=== PATIENT | male | born 1960 | race Caucasian/White ===

== ENCOUNTER 2023-12-13 15:55 | Emergency (ER) | payer OTHER ==
[~2023-12-13] VITALS: Ht 180.3 cm; Wt 117.9 kg
[2023-12-13] MEDS ORDERED: LOSARTAN POTAS100 M1 PO (16:12)
[2023-12-13] MEDS ORDERED: SILDENAFIL CIT100 MG PO (16:12)
[2023-12-13] MEDS ORDERED: AMLODIPINE BESY10 MG PO (16:12)
[2023-12-13] MEDS ORDERED: MYRBETRIQ25 M1 PO (16:12)
[2023-12-13] MEDS ORDERED: HYDROCHLOROTHIA50 M1 PO (16:12)
[2023-12-13] MEDS ORDERED: IBUPROFEN 800 MG TAB PO ONE (16:30)
== END 2023-12-13 18:30 | disposition home or self-care (01) ==
LOC: ED 15:55
DX: M79.641 Pain in right hand (principal); R60.0 Localized edema; Z79.899 Other long term (current) drug therapy; W23.0XXA Caught, crushed, jammed, or pinched between moving objects, initial encounter; Y93.89 Activity, other specified; Y92.812 Truck as the place of occurrence of the external cause; Y99.8 Other external cause status